=== PATIENT | female | born 1995 | race Caucasian/White ===

== ENCOUNTER 2018-10-28 13:53 | Emergency (ER) | payer OTHER ==
[2018-10-28 15:47] VITALS: BP 107/60
--- NOTE | 2018-10-28 15:57 | UC ---
Throat Pain/Nasal Clive HPI - HPI Summary HPI Summary: 4 days of sore throat , ellis, occasional cough. one sick contact. did not get flu shot this year. - History of Current Complaint Chief Complaint: UCGeneralIllness Stated Complaint: SORE THROAT COUGH LEFT EAR HEADACHE Time Seen by Provider: 10/28/18 15:52 Hx Obtained From: Patient Hx Last Menstrual Period: 10/28/18 Pain Intensity: 4 Pain Scale Used: 0-10 Numeric Cough: Nonproductive - occasional Associated Signs & Symptoms: Positive: Sinus Discomfort, Fever. Negative: Dysphagia, Wheezing, Vomiting, Rash - Allergies/Home Medications Allergies/Adverse Reactions: Allergies Allergy/AdvReac Type Severity Reaction Status Date / Time No Known Allergies Allergy Verified 10/28/18 15:40 Home Medications: Home Medications Dextromethorphan Hb/Doxylamine [Gnp Night Time Cough] 30 ml PO DAILY PRN [History Confirmed 10/28/18] PMH/Surg Hx/FS Hx/Imm Hx Previously Healthy: Yes - Surgical History Surgical History: Yes Surgery Procedure, Year, and Place: tonsillectomy - Family History Known Family History: Positive: Hypertension - paternal grandfather, Diabetes - Social History Alcohol Use: Rare Substance Use Type: None Smoking Status (MU): Never Smoked Tobacco Household Exposure Type: Cigarettes - Immunization History Most Recent Influenza Vaccination: has not had Review of Systems All Other Systems Reviewed And Are Negative: Yes Constitutional: Positive: Fever. Negative: Chills, Fatigue Skin: Negative: Rash ENT: Positive: Sore Throat, Ear Ache - L side, Sinus Congestion. Negative: Nasal Discharge Respiratory: Positive: Cough - occasional Cardiovascular: Positive: Negative Gastrointestinal: Negative: Vomiting, Diarrhea Neurological: Positive: Headache Physical Exam Triage Information Reviewed: Yes Appearance: Well-Appearing Vital Signs: Initial Vital Signs Temp 99.3 F 10/28/18 15:41 Pulse 62 10/28/18 15:41 Resp 20 10/28/18 15:41 BP 107/60 10/28/18 15:41 Pulse Ox 100 10/28/18 15:41 Vital Signs Reviewed: Yes ENT: Positive: Pharyngeal erythema, TMs normal, Uvula midline. Negative: Tonsillar exudate, Sinus tenderness Neck: Positive: Supple, Tenderness @ - L ant. cervical Respiratory Exam: Normal Cardiovascular Exam: Normal Neurological: Positive: Alert Skin: Negative: Rashes Throat Pain/Nasal Course/Dx - Course Assessment/Plan: Acute pharyngitis, viral. Rapid strep neg. Exam essentially unremarkable but L ear pain is probably from referred pain of sore throat. Vitals good. comfort measures for tx. - Differential Dx/Diagnosis Differential Diagnosis/HQI/PQRI: Otitis Media, Pharyngitis, Tonsillitis, URI Provider Diagnosis: Viral pharyngitis Discharge - Sign-Out/Discharge Documenting (check all that apply): Patient Departure All imaging exams completed and their final reports reviewed: No Studies - Discharge Plan Condition: Good Disposition: HOME Patient Education Materials: Pharyngitis in Children (ED) Forms: *Work Release Referrals: No Primary Care Phys,NOPCP [Primary Care Provider] - Additional Instructions: If not improving please follow up with your pcp. - Billing Disposition and Condition Condition: GOOD Disposition: Home
== END 2018-10-28 16:47 | disposition home or self-care (01) ==
LOC: UCCORT 13:53
DX: J02.8 Acute pharyngitis due to other specified organisms (principal)
CPT/HCPCS: 87651; 99211; G0463